=== PATIENT | female | born 1995 | race Caucasian/White ===

== ENCOUNTER 2020-09-15 14:28 | Emergency (ER) | payer OTHER ==
[~2020-09-15] VITALS: Ht 172.7 cm; Wt 72.6 kg
[2020-09-15 14:37] VITALS: BP 126/90
--- NOTE | 2020-09-15 14:46 | NUR ---
W/C ASSIST TO BED 02
--- NOTE | 2020-09-15 15:20 | NUR ---
25/F c/o tachycardia and subsequent SOB & faintness x 3 hours ago. Pt was sitting down while symptoms started. Pt counted HR to be 120s lying down and 140s sitting. Also n/v x last few days, is being investigated for gallstones by PCP. Pt aox4, afibrile, ambulatory with steady gait,pink palpebral conjunctiva, sce , flat soft abdomen . HR ranging 90s-110s in triage. Hx- POTS, bipolar
--- NOTE | 2020-09-15 15:40 | NUR ---
dr jacobo at bedside evaluating pt.
[2020-09-15 16:22] LABS: BASOPHILS % (AUTO) 0.5 % (0.0-2.0); EOSINOPHILS # (AUTO) 0.3 K/uL (0-0.4); EOSINOPHILS % (AUTO) 3.5 % (0.0-4.0); HEMATOCRIT 40.5 % (36-48); HEMOGLOBIN 13.4 g/dL (12.0-16.0); LYMPHOCYTES # (AUTO) 1.9 K/uL (2.5-16.5); LYMPHOCYTES % (AUTO) 19.3 % (20.5-51.1); MEAN CORPUSCULAR HEMOGLOBIN 27 pg (27-31); MEAN CORPUSCULAR HGB CONC 33 g/dL (33-37); MEAN CORPUSCULAR VOLUME 82.1 fL (80-94); MONOCYTES # (AUTO) 0.8 K/uL (0.8-1.0); MONOCYTES % (AUTO) 8.7 % (1.7-9.3); NEUTROPHILS # (AUTO) 6.6 K/uL (1.8-7.7); PLATELET COUNT (AUTO) 390 K/uL (140-450); RED BLOOD CELL COUNT(AUTO) 4.92 MIL/uL (4.20-5.40); WHITE BLOOD COUNT (AUTO) 9.7 K/uL (4.8-10.8)
[2020-09-15 16:30] LABS: ANION GAP 15.2 (8-16); CARBON DIOXIDE 29.1 mmol/L (21-32); CREATININE 0.8 mg/dL (0.6-1.3); POTASSIUM 4.3 mmol/L (3.5-5.1)
[2020-09-15 16:58] VITALS: BP 120/80
--- NOTE | 2020-09-15 17:00 | NUR ---
Patient discharged with v/s stable. Written and verbal after care instructions given and explained. Patient verbalized understanding. Ambulatory with steady gait. All questions addressed prior to discharge. Advised to follow up with PMD.Excuse from work given.
== END 2020-09-15 17:00 | disposition home or self-care (01) ==
LOC: MED 14:28
DX: R00.2 Palpitations (principal); I49.8 Other specified cardiac arrhythmias; F31.9 Bipolar disorder, unspecified
CPT/HCPCS: 36415; 80048; 81002; 81025; 84484; 85025; 93005; 99284

== ENCOUNTER 2021-08-18 00:40 | Emergency (ER) | payer OTHER ==
[~2021-08-18] VITALS: Ht 170.2 cm; Wt 71.2 kg
[2021-08-18 00:57] VITALS: BP 144/90
--- NOTE | 2021-08-18 00:57 | NUR ---
patient ambulated to bed 11
--- NOTE | 2021-08-18 01:03 | NUR ---
patient ambulated to the bathroom for urine collection
--- NOTE | 2021-08-18 01:22 | NUR ---
Dr. Leos examining patient.
[2021-08-18] MEDS ORDERED: PHEN-1877 PO (01:25)
[2021-08-18] MEDS ORDERED: KETOROLAC 60 MG/2 ML VIAL IM ONE (01:25)
[2021-08-18] MEDS ORDERED: cefTRIAXone 1,000 MG in LIDOCAINE MPF 1% 2.1 ML IM ONE (01:25)
[2021-08-18] MEDS ORDERED: NITR100C7 PO (01:25)
[2021-08-18 01:30] LABS: APPEARANCE,URINE SL CLOUDY (CLEAR); BILIRUBIN,URINE 2+ (NEGATIVE); BLOOD, URINE TRACE-I (NEGATIVE); COLOR,URINE RED (YELLOW); LEUKOCYTE ESTERASE ,URINE 3+ (NEGATIVE); NITRITE, URINE POSITIVE (NEGATIVE); PH,URINE 6.5 (5.0-9.0); UGLUCOSE 1+ (NEGATIVE)
[2021-08-18] MEDS ORDERED: LIDOCAINE MPF 1% 5 ML ONE (01:31)
[2021-08-18] MEDS ORDERED: cefTRIAXone 1,000 MG VIAL ONE (01:31)
[2021-08-18 01:38] LABS: RBC,URINE 0-5 /HPF (0-5); WBC,URINE 60-80 /HPF (0-5)
[2021-08-18 01:51] VITALS: BP 144/90
--- NOTE | 2021-08-18 01:51 | NUR ---
Patient discharged with v/s stable. Written and verbal after care instructions given and explained. Patient verbalized understanding. Ambulatory with steady gait. All questions addressed prior to discharge. Advised to follow up with PMD.
== END 2021-08-18 01:51 | disposition home or self-care (01) ==
LOC: MED 00:40
DX: N39.0 Urinary tract infection, site not specified (principal); Z79.899 Other long term (current) drug therapy; Z98.890 Other specified postprocedural states
CPT/HCPCS: 81001; 87086; 96372; 99284; J0696; J1885; J2001

== ENCOUNTER 2021-11-07 20:43 | Emergency (ER) | payer OTHER ==
[~2021-11-07] VITALS: Ht 172.7 cm; Wt 72.6 kg
[~2021-11-07 20:43] MED LIST: NITR100C7 PO; PHEN-1877 PO
[2021-11-07 20:45] VITALS: BP 128/76
[2021-11-07] MEDS ORDERED: KETOROLAC 60 MG/2 ML VIAL IM ONE (22:30)
[2021-11-07] MEDS ORDERED: ONDANSETRON 4 MG ODT PO ONE (22:30)
[2021-11-07] MEDS ORDERED: PENICILLIN G BENZATHINE L-A 1.2 MU/2 ML SYR IM ONE (22:30)
[2021-11-07] MEDS ORDERED: DEXAMETHASONE 10 MG/ML VIAL IM ONE (22:30)
[2021-11-07] MEDS ORDERED: PRED20TA5 PO (23:30)
[2021-11-07] MEDS ORDERED: IBUP-2213 PO (23:30)
[2021-11-07] MEDS ORDERED: AMOX500C25 PO (23:30)
[2021-11-07 23:50] VITALS: BP 124/72
[2021-11-08] MEDS ORDERED: ONDA-188 SL (01:19)
== END 2021-11-07 23:45 | disposition home or self-care (01) ==
LOC: MED 20:43
DX: J03.90 Acute tonsillitis, unspecified (principal)
CPT/HCPCS: 81002; 81025; 87081; 96372; 99284; J0561; J1100; J1885; Q0162